=== PATIENT | female | born 2000 ===

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

== ENCOUNTER 2018-05-13 21:38 | Emergency (ER) | payer MEDICAID ==
[2018-05-13 21:38] VITALS: BMI 21.9
[2018-05-13 21:48] VITALS: RESP 16
--- NOTE | 2018-05-13 22:27 | ED PDOC ---
HPI: Abdomen Time Seen by Provider: 05/13/18 21:59 Chief Complaint (Nursing): Abdominal Pain Chief Complaint (Provider): abdominal pain History Per: Patient History/Exam Limitations: no limitations Onset/Duration Of Symptoms: Days (2), Waxing/Waning Current Symptoms Are (Timing): Still Present Location Of Pain/Discomfort: RLQ Quality Of Discomfort: Cramping Additional Complaint(s): 17 y/o female presents for evaluation of crampy right lower abdominal pain x 2 days. Patient reports similar pain in past, was evaluated here and told she had an ovarian cyst. Denies fever, nausea/vomiting, chest pain, shortness of b reath, changes in bowel movements, urinary symptoms, vaginal bleeding/discharge Past Medical History Reviewed: Historical Data, Nursing Documentation, Vital Signs Vital Signs: Last Vital Signs Temp 98.0 F 05/13/18 21:44 Pulse 67 05/13/18 21:44 Resp 16 05/13/18 21:44 BP 108/65 05/13/18 21:44 Pulse Ox 97 05/13/18 21:44 - Medical History PMH: Migraine - Surgical History Surgical History: No Surg Hx - Family History Family History: States: Unknown Family Hx - Home Medications Home Medications: Ambulatory Orders Medication Instructions Recorded Amoxicillin/Clavulanate [Augmentin 1 tab PO BID #10 tab 07/03/16 875 MG-125 MG] Nitrofurantoin Macrocrystals 100 mg PO BID #14 cap 12/25/16 [Macrobid] Ibuprofen [Motrin Tab] 600 mg PO QID PRN #20 tab 07/27/17 Penicillin VK [Penicillin VK Tab] 500 mg PO QID #20 tab 07/27/17 Ciprofloxacin HCl [Cipro] 500 mg PO BID #20 tab 12/26/17 Naproxen [Naprosyn] 500 mg PO Q12 PRN #14 tablet 05/14/18 Nitrofurantoin Macrocrystals 100 mg PO BID #13 cap 05/14/18 [Macrobid] Polyethylene Glycol 3350 [Miralax] 17 gm PO DAILY PRN #5 powd.pack 05/14/18 - Allergies Allergies/Adverse Reactions: Allergies Allergy/AdvReac Type Severity Reaction Status Date / Time cat dander Allergy ITCHING Verified 05/13/18 21:44 Review of Systems ROS Statement: Except As Marked, All Systems Reviewed And Found Negative Genitourinary Female: Positive for: Pelvic Pain Physical Exam - Reviewed Nursing Documentation Reviewed: Yes Vital Signs Reviewed: Yes - Physical Exam Appears: Positive for: Well, Non-toxic, No Acute Distress Head Exam: Positive for: ATRAUMATIC, NORMAL INSPECTION, NORMOCEPHALIC Skin: Positive for: Normal Color Eye Exam: Positive for: Normal appearance ENT: Positive for: Normal ENT Inspection Cardiovascular/Chest: Positive for: Regular Rate, Rhythm Respiratory: Positive for: Normal Breath Sounds Gastrointestinal/Abdominal: Positive for: Bowel Sounds, Soft, Tenderness (right lower abdomen) Back: Positive for: Normal Inspection Extremity: Positive for: Normal ROM Neurologic/Psych: Positive for: Alert, Oriented (x3) - Laboratory Results Result Diagrams: 05/13/18 22:46 05/13/18 22:46 - ECG O2 Sat by Pulse Oximetry: 97 - Progress ED Course And Treament: -upreg -udip -urinalysis -urine c&s -cbc -cmp -transvaginal u/s Date of service: 05/13/2018 History Pelvic pain. Comparison None available. Procedure Pelvic transvaginal ultrasound. Findings Uterus Measures 8.5 x 3.6 x 5.9 cm. Normal in size and appearance. No fibroid or other mass lesion seen. Endometrium Measures 0.82 cm in diameter. Unremarkable. Cervix Measures 3.9 cm. Nabothian cyst measures 0.8 x 0.4 cm. Right ovary Measures 2.4 x 1.9 x 1.9 cm. No solid mass. Normal flow. Left ovary Measures 5.2 x 3.7 x 3.2 cm. No solid mass. Normal flow. Cyst measures 3.0 x 3.6 x 2.5 cm. Free fluid No significant free fluid noted. Other Findings None. Impression Nabothian cyst. Left ovarian cyst. Normal right ovary CT SCAN OF THE ABDOMEN AND PELVIS WITH CONTRAST. CLINICAL HISTORY: Abdominal pain. TECHNIQUE: Multiple axial and coronal CT images were obtained through the abdomen and pelvis after administration of intravenous and oral contrast material. COMPARISON: 12/26/2017. COMMENTS: Moderate amount of fecal residue in the large bowels. Diffuse thickening of the bladder. 4.2 cm left ovarian cyst containing hyperdense material. The liver is of uniform attenuation without mass or defect. There is no intra or extrahepatic biliary ductal dilatation. The spleen is normal. The gallbladder is within normal limits. The pancreas is of normal contour and attenuation alfreda cteristics. There is no evidence of adrenal mass. Both kidneys demonstrate prompt and equal nephrograms. The kidneys are normal in size, shape and configuration. There is no evidence of renal or ureteral mass. No renal or ureteral calculi are identified. There is no hydroureter or hydronephrosis. No evidence for appendicitis. There is no bowel wall thickening. No evidence for small or large bowel obstruction. There is no evidence of abdominal ascites or lymphadenopathy. There is no evidence of intrinsic or extrinsic bladder mass. There is no pelvic ascites or lymphadenopathy. Images of the lung bases show no evidence of pleural or parenchymal mass. There are no pleural effusions. The bony structures are free of lytic or blastic lesions. IMPRESSION: Moderate amount of fecal residue in the large bowels. Constipation. Diffuse thickening of the bladder. Underdistention versus mild cystitis. 4.2 cm left ovarian cyst containing hyperdense material. This may represent a complicated cyst, hemorrhagic cyst or endometrioma. Patient educated on findings, discharged with rx macrobid (dose given in ED), Miralax, Naproxen Advised high fiber diet, fluids Follow up with PMD/Voice Coach Return precautions given Disposition - Clinical Impression Clinical Impression: Urinary tract infection, Abdominal pain, Constipation, Ovarian cyst, left - Patient ED Disposition Is Patient to be Admitted: No Counseled Patient/Family Regarding: Studies Performed, Diagnosis, Need For Followup, Rx Given - Disposition Disposition: Routine/Home Disposition Time: 02:45 Condition: IMPROVED Prescriptions: Naproxen [Naprosyn] 500 mg PO Q12 PRN #14 tablet PRN Reason: Pain, Moderate (4-7) Nitrofurantoin Macrocrystals [Macrobid] 100 mg PO BID #13 cap Polyethylene Glycol 3350 [Miralax] 17 gm PO DAILY PRN #5 powd.pack PRN Reason: Constipation Instructions: Acute Abdomen (Belly Pain), Constipation in Adults, Urinary Tract Infections in Adults, Ovarian Cysts Forms: [email or web address] (Belarusian)
[2018-05-13 22:55] LABS: BASO # 0.1 K/uL (0.0-0.2); BASO % 0.7 % (0.0-2.0); EOS # 0.1 K/uL (0.0-0.7); EOS % 1.5 % (0.0-4.0); HEMOGLOBIN 13.2 g/dL (12.0-16.0); LYMPH # 2.3 K/uL (1.0-4.3); LYMPH % 25.1 % (20.0-40.0); MEAN CELL VOLUME 93.8 fl (81.0-99.0); MEAN CORPUSCULAR HEMOGLOBIN 31.9 pg (27.0-31.0); MEAN PLATELET VOLUME 9.3 fl (7.2-11.7); MONO % 11.4 % (0.0-10.0); NEUT # 5.6 K/uL (1.8-7.0); NEUT % 61.3 % (50.0-75.0); NRBC % 0.2 % (0.0-0.0); RBC 4.15 Mil/uL (3.80-5.20); RED CELL DISTRIBUTION WIDTH 12.1 % (11.5-14.5); WHITE BLOOD COUNT 9.1 K/uL (4.8-10.8)
[2018-05-13 22:59] LABS: SQUAMOUS EPITHIAL 7 /hpf (0-5); URINE AMORPHOUS SEDIMENT RARE /ul (<OCC); URINE BILIRUBIN NEGATIVE (NEGATIVE); URINE BLOOD NEGATIVE (NEGATIVE); URINE CLARITY TURBID (Clear); URINE COLOR YELLOW (YELLOW); URINE GLUCOSE (UA) NEG (NEGATIVE); URINE LEUKOCYTE ESTERASE MOD Leu/uL (Negative); URINE PROTEIN NEGATIVE (NEGATIVE); URINE UROBILINOGEN 0.2-1.0 mg/dL (0.2-1.0)
[2018-05-13 23:05] LABS: ALB/GLOB RATIO 1.4 (1.0-2.1); ALBUMIN 4.4 g/dL (3.5-5.0); ALT/SGPT 28 U/L (9-52); AST/SGOT 25 U/L (14-36); BLOOD UREA NITROGEN 17 mg/dl (7-17); CALCIUM 9.8 mg/dL (8.4-10.2); GFR NON-AFRICAN AMERICAN > 60
[2018-05-13] MEDS ORDERED: Iohexol 240 (50 ml) PO ONE (23:46)
[2018-05-13] MEDS ORDERED: Iohexol 240 (50 ml) ONE (23:47)
[2018-05-14] MEDS ORDERED: Iohexol 300 100 ML IJ ONE (02:11)
[2018-05-14 03:03] VITALS: BP 110/72; PULSE 75; TEMP 98.2; O2SAT 98
--- NOTE | 2018-05-14 11:53 | CT ---
Date of service: 05/14/2018 PROCEDURE: CT Abdomen and Pelvis with contrast HISTORY: Right lower quadrant pain COMPARISON: 12/18/2017. TECHNIQUE: CT scan of the abdomen and pelvis was performed after administration of intravenous contrast. Oral contrast was administered. Coronal and sagittal reformatted images were obtained. Contrast dose: 90 mL Omnipaque 300 Radiation dose: Total exam DLP = 329.06 mGy-cm. This CT exam was performed using one or more of the following dose reduction techniques: Automated exposure control, adjustment of the mA and/or kV according to patient size, and/or use of iterative reconstruction technique. FINDINGS: LOWER THORAX: The visualized lungs are clear. LIVER: Normal in size with homogeneous enhancement. No gross lesion or ductal dilatation. GALLBLADDER AND BILE DUCTS: Well distended. No calcified gallstones, wall thickening or pericholecystic fluid. PANCREAS: Normal in size with homogeneous enhancement. No gross lesion or ductal dilatation. SPLEEN: Normal in size and appearance. ADRENALS: No discrete nodule. KIDNEYS AND URETERS: Normal in size with homogeneous enhancement. No hydronephrosis. No solid mass. VASCULATURE: No aortic aneurysm. There are no aortic atherosclerotic calcifications or mural plaque present. BOWEL: The small bowel loops are normal in caliber. There is large amount of stool in the ascending and transverse colon. No bowel wall thickening or obstruction. APPENDIX: Normal appendix. PERITONEUM: No free fluid. No free air. LYMPH NODES: No enlarged lymph nodes. BLADDER: Well distended and normal in appearance. REPRODUCTIVE: The uterus is normal in size. There is a 4.5 x 3.9 cm cyst with layering high attenuation in the left ovary. BONES: No acute fracture. Within normal limits for the patient's age. OTHER FINDINGS: None. IMPRESSION: 1. No acute abdominal or pelvic abnormality. 2. 4.5 x 3.9 cm complicated/hemorrhagic cyst in the left ovary. Correlation with pelvic ultrasound is recommended for definitive characterization. 3. Constipation. No evidence for bowel obstruction. A preliminary report was provided by [employer].
--- NOTE | 2018-05-14 12:31 | US ---
Date of service: 05/13/2018 HISTORY: Right pelvic pain COMPARISON: None available. TECHNIQUE: Transvaginal pelvic ultrasound was performed. FINDINGS: UTERUS: Measures 8.5 x 3.6 x 5.9 cm. Anteverted, normal in size and appearance. No fibroid or other mass lesion seen. ENDOMETRIUM: Measures 8.2 mm in diameter. Normal in appearance. CERVIX: There is a 8 mm nabothian cyst. RIGHT OVARY: Measures 2.4 x 1.9 x 1.9 cm. No solid mass. Normal flow. LEFT OVARY: Measures 5.2 x 3.7 x 3.2 cm. No solid mass. Normal flow. There is a 3.0 x 3.6 x 2.5 cm complicated/hemorrhagic cyst. FREE FLUID: No significant free fluid noted. OTHER FINDINGS: None. IMPRESSION: 3.6 cm complicated/hemorrhagic cyst in the left ovary. Follow-up ultrasound in 3-6 month interval is recommended to assess stability/resolution. Subcentimeter nabothian cyst. A preliminary report was provided by [employer]. The final report is tagged to the [facility] review folder.
== END 2018-05-14 03:02 | disposition home or self-care (01) ==
LOC: H.ER 21:38
DX: N88.8 Other specified noninflammatory disorders of cervix uteri (principal); N83.202 Unspecified ovarian cyst, left side; N39.0 Urinary tract infection, site not specified; K59.00 Constipation, unspecified
CPT/HCPCS: 74177; 76830; 80053; 81003; 81025; 85025; 87086; 96374; 99285; J1885; Q9966; Q9967